=== PATIENT | male | born 1945 | race Caucasian/White ===

== ENCOUNTER 2020-03-13 00:09 | Outpatient (CLI) | payer MEDICARE, SELFPAY ==
[2020-03-13 19:48] LABS: SARS-CoV-2 RNA PCR Negative
== END 2020-03-13 00:10 | disposition home or self-care (01) ==
LOC: ANHCOVIDDT 00:09
PROVIDERS: PCP Internal Medicine; Visit Provider Internal Medicine Gastroenterology
DX: Z01.818 Encounter for other preprocedural examination (principal); Z20.828 Contact with and (suspected) exposure to other viral communicable diseases
CPT/HCPCS: 87635; C9803; U0003

== ENCOUNTER 2020-03-16 01:21 | Day surgery (SDC) | payer MEDICARE, SELFPAY ==
[2020-03-12 12:53] VITALS: BMI 29.8
--- NOTE | 2020-03-16 08:19 | WPDANESEPPF ---
Anes - Initial Pre Proc Eval Procedure: Operation Date: 03/16/20 10:00 Proposed Procedures p Colonoscopy - David Browning MD Date/Time: 03/16/20 08:19 Surgeon: David Browning MD Pre Op Diagnosis: Rectal Bleeding/Hx Colon Polyps Patient Data Age: 74 Gender: M Height: 1.73 m Weight: 89 kg Allergies Allergy/AdvReac Type Severity Reaction Status Date / Time No Known Drug Allergies Allergy Unknown Verified 03/16/20 08:40 Home Medications Medication Instructions Recorded Confirmed Type ascorbic acid (vitamin C) 500 mg 500 mg PO DAILY 06/03/19 03/12/20 History capsule fluticasone furoate 200 1 inhalation INHALATION DAILY 06/03/19 03/12/20 History mcg-vilanterol 25 mcg/dose inhalation powder loratadine 10 mg capsule 10 mg PO DAILY 06/03/19 03/12/20 History lovastatin 40 mg tablet 40 mg PO DAILY 06/03/19 03/12/20 History omega-3 fatty acids-fish oil 300 1 cap PO BID 06/03/19 03/12/20 History mg-1,000 mg capsule quinapril 20 mg tablet 20 mg PO DAILY 06/03/19 03/12/20 History triamterene 37.5 1 tablet PO QAM 06/03/19 03/12/20 History mg-hydrochlorothiazide 25 mg tablet metoprolol tartrate 25 mg tablet 25 mg PO DAILY 10/12/19 03/12/20 History Patient hx anesthesia problems: none Family hx anesthesia problems: none PMFSH Past Medical History Medical History Abnormal blood sugar Asthma COPD (chronic obstructive pulmonary disease) Elevated PSA High cholesterol History of arthritis Both hands History of hemorrhoids Hyperlipidemia Hypertension Mild vitamin D deficiency Obesity Osteoarthritis of left knee Surgical History Surgical History History of hernia repair 1965 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 Andrews History of tonsillectomy Family History Family History Mother Diabetes mellitus Grandparent Diabetes mellitus Social History Social History Smoking packs per day: 2 Smoking cigarettes per day: 40.0 Years smoked: 25 Smoking pack-years: 50.00 Smoking status: Former smoker Tobacco type: cigarettes Smoking end date: 12/16/87 Alcohol intake: current Drinks per week: 14 Substance use: never Living arrangements: with family Additional living arrangements comments: - Marsha Gaxiola Gender identity (if verbalized by the patient): Male Spiritual care concerns: No Anes - Eval Final PreProcedure Day of Procedure 03/16/20 08:19 Patient weight: obese Heart: regular rate and rhythm Lungs: clear to auscultation and normal air movement Airway: Mallampati scale class II Neurological: alert and oriented Last oral intake: >/= 8 hours ASA classification: III Emergent: no Anesthetic plan: proceed Anesthesia type and monitoring: general GIVS Informed Consent: The patient's anesthetic plan and its attendant risks and benefits were discussed with the patient/family/POA. Questions were solicited and answers provided to the satisfaction of the patient/family/POA.
[2020-03-16 08:41] VITALS: BP 136/82; PULSE 82; RESP 16; TEMP 36.7; O2SAT 97; BMI 30.2
[2020-03-16] MEDS: LACTATED RINGERS 1,000 ML 150 ML IV CONT (08:55)
--- NOTE | 2020-03-16 09:37 | WPDGICN ---
Assessment and Plan Assessment and plan (1) Rectal bleeding: Code(s): K62.5 - Hemorrhage of anus and rectum Status: Acute (2) Encounter for colonoscopy due to history of adenomatous colonic polyps: Code(s): Z12.11 - Encounter for screening for malignant neoplasm of colon; Z86.010 - Personal history of colonic polyps Status: Acute Assessment and Plan: Plan is for surveillance colonoscopy at this time because of prior history of colon polyps high-fiber diet is advised because recent rectal bleeding. Further recommendations will be given after endoscopy. GI Consult Note Consult date/time: 03/16/20 09:37 HPI: Damian Gaxiola is a 74 year old male Seen in evaluation at the request of Dr. Roy. Patient has a distant history of colon polyps. He presents today for follow-up colonoscopy. Patient notice bright red blood for 3 days that occurred 3 weeks ago. He denies any associated abdominal pain. He has had no rectal pain. He is known to have hemorrhoids. He states his bowel habits sometimes fluctuate in texture. Family history is noncontributory. 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 Andrews History of tonsillectomy Family History Family History Mother Diabetes mellitus Grandparent Diabetes mellitus Social History Social History Smoking packs per day: 2 Smoking cigarettes per day: 40.0 Years smoked: 25 Smoking pack-years: 50.00 Smoking status: Former smoker Tobacco type: cigarettes Smoking end date: 12/16/87 Alcohol intake: current Drinks per week: 14 Substance use: never Living arrangements: with family Additional living arrangements comments: - Marsha Gaxiola Gender identity (if verbalized by the patient): Male Spiritual care concerns: No Meds Home Medications and Allergies Home Medications Medication Instructions Recorded Confirmed Type ascorbic acid (vitamin C) 500 mg 500 mg PO DAILY 06/03/19 03/12/20 History capsule fluticasone furoate 200 1 inhalation INHALATION DAILY 06/03/19 03/12/20 History mcg-vilanterol 25 mcg/dose inhalation powder loratadine 10 mg capsule 10 mg PO DAILY 06/03/19 03/12/20 History lovastatin 40 mg tablet 40 mg PO DAILY 06/03/19 03/12/20 History omega-3 fatty acids-fish oil 300 1 cap PO BID 06/03/19 03/12/20 History mg-1,000 mg capsule quinapril 20 mg tablet 20 mg PO DAILY 06/03/19 03/12/20 History triamterene 37.5 1 tablet PO QAM 06/03/19 03/12/20 History mg-hydrochlorothiazide 25 mg tablet metoprolol tartrate 25 mg tablet 25 mg PO DAILY 10/12/19 03/12/20 History Allergies Allergy/AdvReac Type Severity Reaction Status Date / Time No Known Drug Allergies Allergy Unknown Verified 03/16/20 08:40 Vital Signs Vital Signs - 24 hr 03/16/20 08:41 Temperature 98.1 F Pulse Rate 82 Respiratory Rate 16 Blood Pressure 136/82 Pulse Oximetry 97 Exam Narrative: Exam Narrative: Physical exam reveals patient to be alert. Vital signs stable. HEENT exam unremarkable. Lungs are clear to auscultation and percussion. Heart is without murmur or extra sounds. Abdominal exam bowel sounds are present soft nontender with no organomegaly. Digital external rectal exam normal.
[2020-03-16 10:04] VITALS: BP 93/56; PULSE 63; RESP 20; O2SAT 99
[2020-03-16 10:14] VITALS: BP 100/65; PULSE 74; RESP 19; O2SAT 100
[2020-03-16 10:24] VITALS: BP 110/67; PULSE 90; RESP 15; O2SAT 95
== END 2020-03-16 10:53 | disposition home or self-care (01) ==
PROVIDERS: PCP Internal Medicine; Visit Provider Internal Medicine Gastroenterology
PROC: 0DJD8ZZ Inspection of Lower Intestinal Tract, Via Natural or Artificial Opening Endoscopic (ICD-10-PCS; CPT 45378; principal; 2020-03-16 10:00)
DX: Z12.11 Encounter for screening for malignant neoplasm of colon (principal); K64.8 Other hemorrhoids; K57.30 Diverticulosis of large intestine without perforation or abscess without bleeding; K63.5 Polyp of colon; K62.5 Hemorrhage of anus and rectum; J44.9 Chronic obstructive pulmonary disease, unspecified; I10 Essential (primary) hypertension; E78.5 Hyperlipidemia, unspecified; E55.9 Vitamin D deficiency, unspecified; E66.9 Obesity, unspecified; Z68.30 Body mass index [BMI] 30.0-30.9, adult; Z87.891 Personal history of nicotine dependence
CPT/HCPCS: 45385; 87635; 88305; C9803; J2704; J7120; U0003

== ENCOUNTER 2022-04-06 09:52 | Emergency (ER) | payer MEDICARE, SELFPAY ==
--- NOTE | ~2022-04-06 | XR_ITS ---
EXAMINATION: XR chest 2V 04/06/2022 10:20 INDICATION: Cough and fatigue PROCEDURE: 2 view chest COMPARISON: 03/28/2014 FINDINGS: The lungs are clear. The cardiomediastinal silhouette is within normal limits. There are no pleural effusions. There is no pneumothorax suspected. IMPRESSION: 1: NO ACUTE CARDIOPULMONARY DISEASE. Reviewed, dictated and finalized at location A. [employer]
[2022-04-06 10:10] VITALS: BP 164/95; PULSE 92; RESP 16; TEMP 36.9; O2SAT 99
--- NOTE | 2022-04-06 10:53 | ED.GENADULT ---
HPI - General Adult General Chief complaint: Upper Respiratory Infection Stated complaint: swollen lymph nodes,cough,runny nose Source: patient Mode of arrival: ambulatory Limitations: no limitations History of Present Illness HPI narrative: Patient presents for evaluation of neck swelling. Symptom onset yesterday. He indicates he has had a cough and fatigue for approximately 8 days. His cough has persisted so he came in for further evaluation. His experienced a sore throat as well. He states he has had a little difficulty swallowing as of today. Denies any fever, chills, difficulty breathing. He denies any recent sick contacts. He has an underlying hx of COPD but quit smoking in the . He reports some mild dental pain on the right. No additional complaints or concerns. Related Data Home Medications Medication Instructions Recorded Confirmed ascorbic acid (vitamin C) 500 mg 500 mg PO DAILY 06/03/19 04/06/22 capsule loratadine 10 mg capsule 10 mg PO DAILY 06/03/19 04/06/22 lovastatin 40 mg tablet 40 mg PO DAILY 06/03/19 04/06/22 omega-3 fatty acids-fish oil 300 1 cap PO BID 06/03/19 04/06/22 mg-1,000 mg capsule quinapril 20 mg tablet 20 mg PO DAILY 06/03/19 04/06/22 triamterene 37.5 1 tablet PO QAM 06/03/19 04/06/22 mg-hydrochlorothiazide 25 mg tablet metoprolol tartrate 25 mg tablet 25 mg PO DAILY 10/12/19 04/06/22 Allergies Allergy/AdvReac Type Severity Reaction Status Date / Time No Known Drug Allergies Allergy Unknown Verified 04/06/22 10:06 Review of Systems Review of Systems: CONSTITUTIONAL: Reports fatigue.Denies fever, chills, or sweats. EYES: Denies visual changes, redness, or discharge. ENT: Reports mild right-sided dental pain and sore throat. Denies rhinorrhea, congestion, or otalgia. CARDIOVASCULAR: Denies chest pain, palpitations, or edema. RESPIRATORY: Reports cough. Denies shortness of breath. dyspnea. GASTROINTESTINAL: Denies abdominal pain, nausea, vomiting, or diarrhea. GENITOURINARY: Denies dysuria or hematuria. SKIN: Denies rash or itching. MUSCULOSKELETAL: Reports neck pain and swelling NEUROLOGIC: Denies headache, numbness, dizziness, or weakness. PSYCHIATRIC: Denies anxiety or depression. 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 Andrews History of tonsillectomy Family History Family History Mother Diabetes mellitus Grandparent Diabetes mellitus Social History Social History Smoking packs per day: 2 Smoking cigarettes per day: 40.0 Years smoked: 25 Smoking pack-years: 50.00 Smoking status: Former smoker Tobacco type: cigarettes Smoking end date: 12/16/87 Alcohol intake: current Drinks per week: 14 Alcohol use details: Occasional Substance use: never Additional living arrangements comments: - Marsha Gaxiola Gender identity (if verbalized by the patient): Male Spiritual care concerns: No Exam Narrative: GENERAL: Well-appearing, well-nourished, and in no acute distress. HEAD: Normocephalic, atraumatic. EYES: PERRLA and EOMI. ENT: Nares clear, no rhinorrhea or epistaxis. There are several metallic dental fillings. I do not appreciate a dental fracture. I do not palpate a drainable fluid collection. Oropharynx without tonsillar hypertrophy exudate or other lesions. Bilateral TMs pearly crisostomo nonbulging NECK:
== END 2022-04-06 10:55 | disposition short-term general hospital (02) ==
PROVIDERS: Emergency Provider Nurse Practitioner; PCP Internal Medicine
DX: R22.1 Localized swelling, mass and lump, neck (principal); Z87.891 Personal history of nicotine dependence; J44.9 Chronic obstructive pulmonary disease, unspecified; E78.00 Pure hypercholesterolemia, unspecified; M19.042 Primary osteoarthritis, left hand; M19.041 Primary osteoarthritis, right hand; E78.5 Hyperlipidemia, unspecified; I10 Essential (primary) hypertension; E66.9 Obesity, unspecified; Z68.31 Body mass index [BMI] 31.0-31.9, adult; M17.12 Unilateral primary osteoarthritis, left knee; Z96.652 Presence of left artificial knee joint
CPT/HCPCS: 71046; 99213; G0463